=== PATIENT | male | born 1975 | race Caucasian/White ===

== ENCOUNTER → 2017-02-13 | Outpatient (CLI) | payer BC ==
[~2017-02-13] MED LIST: 'PARAFON FORTE500 M1 PO; CYCLOBENZAPRINE10 MG PO; DULOXETINE HCL30 MG PO; HYDROCODONE BIT1 T11 PO; JANUVIA50 MG PO; LOSARTAN POTAS100 M1 PO; Motrin,Rufen800 MG PO; NAPROSYN500 MG PO; OMEPRAZOLE D/R20 MG PO
== END | disposition home or self-care (01) ==
LOC: RAD 15:54
DX: M48.07 Spinal stenosis, lumbosacral region (principal); M43.16 Spondylolisthesis, lumbar region; M40.46 Postural lordosis, lumbar region

== ENCOUNTER → 2017-03-05 | Outpatient (CLI) | payer BC | END | disposition home or self-care (01) | LOC: MRI 08:49 | DX: M51.26 Other intervertebral disc displacement, lumbar region (principal); M54.5 Low back pain ==

== ENCOUNTER 2018-11-20 08:52 | Inpatient (IN) | payer BC ==
[2018-11-20] VITALS (7 sets, daily range): BP systolic 125–162; BP diastolic 76–101
[~2018-11-20] VITALS: Ht 190.5 cm
[2018-11-20 09:21] LABS: BASO # 0.1 10*3/uL (0.0-0.1); BASO % 0.4 % (0.0-1.0); EOS # 0.1 10*3/uL (0.0-0.4); EOS % 0.6 % (1.0-4.0); HEMOGLOBIN 18.3 g/dl (14.0-18.0); LYMPH # 2.3 10*3/uL (1.3-4.4); MEAN CELL VOLUME 86.4 fl (80.0-94.0); MEAN CORPUSCULAR HGB 30.4 pg (27.0-31.0); MEAN CORPUSCULAR HGB CONC 35.2 g/dl (33.0-37.0); MEAN PLATELET VOLUME 10.1 fl (9.6-12.3); MONO # 1.1 10*3/uL (0.1-1.0); MONO % 5.4 % (3.0-9.0); NEUT # 15.8 10*3/uL (2.3-7.9); NEUT % 81.2 % (47.0-73.0); PLATELET COUNT AUTOMATED 261 10*3/uL (130-400); RED BLOOD COUNT 6.02 10*6/uL (4.50-5.90); RED CELL DISTRI WIDTH 12.8 % (0-14.5); WHITE BLOOD COUNT 19.4 10*3/uL (4.8-10.8)
--- NOTE | 2018-11-20 09:30 | NUR ---
PAIN HAS EASED A LITTLE. PLACEFD ON 2L NC FOR POX OF 88% ON ROOM AIR AFTER PAIN MEDS.
[2018-11-20] MEDS ORDERED: HYDROCODONE-AC1 EACH PO (09:32)
[2018-11-20 09:37] LABS: ALBUMIN 3.7 gm/dl (3.1-4.5); ALKALINE PHOSPHATASE 155 U/L (45-117); BUN 12 mg/dl (7-24); CHLORIDE 108 mmol/L (98-107); CREATININE 0.88 mg/dL (0.70-1.30); POTASSIUM 3.7 mmol/L (3.5-5.1); SGOT/AST 199 IU/L (3-35); SGPT/ALT 334 U/L (12-78); SODIUM 138 mmol/L (136-145); TOTAL PROTEIN 7.9 gm/dL (6.4-8.2)
[2018-11-20 10:04] LABS: LIPASE 27560 U/L (73-393)
[2018-11-20 10:24] LABS: BILIRUBIN 1+ (NEGATIVE); BLOOD NEGATIVE (NEGATIVE); CLARITY CLEAR (CLEAR); COLOR YELLOW (YELLOW); GLUCOSE TRACE (NEGATIVE); KETONE NEGATIVE (NEGATIVE); LEUKO ESTERASE NEGATIVE (NEGATIVE); NITRITE NEGATIVE (NEGATIVE); SPECIFIC GRAVITY <= 1.005 (1.005-1.030); UROBILINOGEN 0.2 E.U./dl (0.2-1.0)
--- NOTE | 2018-11-20 10:43 | NUR ---
REMEDICATED WITH DILAUDID FOR RETURN OF PAIN.
--- NOTE | 2018-11-20 11:06 | NUR ---
PAIN IS BETTER AT THIS TIME.
[2018-11-20] MEDS ORDERED: CYMBALTA60 MG PO (12:47)
--- NOTE | 2018-11-20 12:49 | NUR ---
A 43, admitted to 5E, under the services of ZULEYKA Mckeon DO with a diagnosis of PANCREATITIS. Chief complaint is ABDOMINAL PAIN,NAUSEA AND VOMITING. Patient arrived via from ER. Monitor applied. Initial assessment completed. Vital signs taken and recorded. ZULEYKA MCKEON DO notified of admission to the unit. Orders received. See assessment for past medical history, medications and allergies. Patient and/or family oriented to unit. [facility] visitation policy reviewed. Clothing/patient valuable form completed. ADAM BROWN
--- NOTE | 2018-11-20 12:49 | NUR ---
RODGER-RN INFORMED THIS NURSE THAT WAS ALREADY CONSULTED AND TALKED T.
--- NOTE | 2018-11-20 12:53 | NUR ---
MEDS RECONCILED AT BEDSIDE WITH AND PATIENT.
--- NOTE | 2018-11-20 13:23 | NUR ---
YONATAN INFORMED THAT MEDICATIONS ARE VERIFIED AND THAT PATIENT WAS STILL HAVING COMPLAINT OF PAIN. STATED SHE WAS WORKING ON HIS CHART NOW.
--- NOTE | 2018-11-20 14:25 | NUR ---
PATIENT REQUESTED PAIN MEDICATION FOR ABDOMINAL PAIN 07/25. MORPHINE GIVEN, WILL MONITOR.
--- NOTE | 2018-11-20 15:25 | NUR ---
PATIENT STATED THAT PAIN MEDICATION WAS SOMEWHAT EFFECTIVE FOR ABDOMINAL PAIN.
--- NOTE | 2018-11-20 17:59 | NUR ---
INFORMED THAT PATIENT IS HAVING 10/10 PAIN TO ABDOMINAL REGION AND NOT DUE FOR PAIN MEDICATION FOR ANOTHER 1/2 HOUR[address] DT[address] SHE WOULD PL[address] A ONE TIME ORDER.
--- NOTE | 2018-11-20 18:38 | NUR ---
PATIENT RECEIVED ZOFRAN FOR NAUSEA. VOMITING BRIGHT GREEN EMESIS.
--- NOTE | 2018-11-20 20:10 | NUR ---
PT RESTING IN BED. RESP-EASY AND REGULAR. OXYGEN IN USE. IVF INFUSING WITH NO PROBLEM. C/O UPPER ABDOMINAL PAIN ACROSS THE TOP OF ABDOMEN, RATES PAIN 5 ON PAIN SCALE, SEE EMAR. CALL LIGHT IN REACH.
--- NOTE | 2018-11-20 22:15 | NUR ---
PT RESTING IN BED C/O HEADACHE, RATES PAIN 8 ON PAIN SCALE 0-10. MEDICATED WITH TORADOL IV PER PRN ORDER, SEE EMAR. PT STATES ABDOMINAL PAIN IS BETTER RATES APIN 4 ON PAIN 0-10. CALL LIGHT IN REACH.
--- NOTE | 2018-11-20 23:10 | NUR ---
RESTING IN BED WITH EYES CLOSED. RESP-EASY AND REGULAR. OXYGEN IN USE. IVF INFUSING WITH NO PROBLEM. MEDICATION SEEMS TO BE WORKING. CALL LIGHT IN REACH.
[2018-11-21] VITALS: BP 161/99
--- NOTE | 2018-11-21 00:27 | NUR ---
RESTING IN BED. MEDICATED WITH MORPHINE IV PER PRN ORDER, SEE EMAR. FOR C/O ABDOMINAL PAIN, RATES PAIN 8 ON PAIN SCALE 0-10. CALL LIGHT IN REACH. SEE SHIFT ASSESSMENT.
--- NOTE | 2018-11-21 04:00 | NUR ---
SLEEPING IN BED. RESP-EASY AND REGUALR. CALL LIGHT IN REACH.
--- NOTE | 2018-11-21 05:40 | NUR ---
PT C/O ABDOMINAL PAIN, RATES PAIN 7 ON PAIN SCALE 0-10. MEDICATED WITH MORPHINE IV PER PRN ORDER, SEE EMAR. BSG-118, SEE EMAR. CALL LIGHT IN REACH.
[2018-11-21 06:52] LABS: BASO % 0.3 % (0.0-1.0); EOS # 0.2 10*3/uL (0.0-0.4); EOS % 1.3 % (1.0-4.0); HEMATOCRIT 49.8 % (42.0-52.0); LYMPH # 2.2 10*3/uL (1.3-4.4); LYMPH % 18.4 % (27.0-41.0); MEAN CORPUSCULAR HGB 30.5 pg (27.0-31.0); MEAN CORPUSCULAR HGB CONC 34.1 g/dl (33.0-37.0); MEAN PLATELET VOLUME 10.4 fl (9.6-12.3); MONO # 0.6 10*3/uL (0.1-1.0); MONO % 5.3 % (3.0-9.0); NEUT # 8.9 10*3/uL (2.3-7.9); NEUT % 74.4 % (47.0-73.0); PLATELET COUNT AUTOMATED 210 10*3/uL (130-400); RED BLOOD COUNT 5.57 10*6/uL (4.50-5.90); RED CELL DISTRI WIDTH 13.2 % (0-14.5)
[2018-11-21 06:53] LABS: MEAN CELL VOLUME 89.4 fl (80.0-94.0)
[2018-11-21 07:00] LABS: ALBUMIN 3.1 gm/dl (3.1-4.5); ALKALINE PHOSPHATASE 123 U/L (45-117); BILIRUBIN, DIRECT 0.9 mg/dL (0.0-0.2); BUN 15 mg/dl (7-24); CHLORIDE 107 mmol/L (98-107); CHOLESTEROL 174 mg/dL (<200); CREATININE 0.71 mg/dL (0.70-1.30); HDL CHOLESTEROL 30 mg/dl (40-60); LDL CHOLESTEROL 115 mg/dL (9-159); PHOSPHOROUS 2.7 mg/dL (2.5-4.9); POTASSIUM 3.8 mmol/L (3.5-5.1); SGOT/AST 79 IU/L (3-35); SGPT/ALT 214 U/L (12-78); SODIUM 143 mmol/L (136-145); TOTAL PROTEIN 7.2 gm/dL (6.4-8.2); TRIGLYCERIDES 144 mg/dl (<150); VLDL CHOLESTEROL 29 mg/dL (6-40)
[2018-11-21 07:07] LABS: FREE T4 1.98 ng/dl (0.76-1.46); THYROID STIM HORMONE (HS) 0.246 uIU/ml (0.358-4.75)
--- NOTE | 2018-11-21 07:10 | NUR ---
BEDSIDE REPORT OBTAINED FROM LAURO. PATIENT APPEARS TO BE ASLEEP, EYES CLOSED. RESTING COMFORTABLY. NO S&S OF DISTRESS NOTED, RESP ARE ERND ON O2 2LPM NC INPLACE. BED IS LOCKED IN LOWEST POSITION CALL LIGHT LEFT WITHIN REACH.
[2018-11-21 07:12] LABS: LIPASE 1633 U/L (73-393)
[2018-11-21 08:00] VITALS: BP 118/72; BP 158/95
--- NOTE | 2018-11-21 09:10 | NUR ---
CALLED AND RECONFIRMED THAT HE IS AWARE OF CONSULT. STATED HE HAD INFORMED ER STAFF THAT PATIENT WAS NOT A SURGICAL CANNIDATE, SIAD HE WOULD BE INTODAY AND DISCUSS WITH GIO POWERS INFORMED.
--- NOTE | 2018-11-21 09:12 | NUR ---
YONATAN STATED IF MORPHINE PRN WAS NOT AVAILABLE ATT HIS TIME TO PLACE A ONE TIME ORDER ASHANTI AND SHE WOULD ADJUST MORPHINE IV TO Q2HR PRN INSTEAD OF Q4HR PRN.
--- NOTE | 2018-11-21 09:19 | NUR ---
PATIENT MEDICATED WITH ONE TIME DOSE OF IV MORPHINE FOR 9/10 ABDOMINAL PAIN. WILL MONITOR.
--- NOTE | 2018-11-21 10:19 | NUR ---
PATIENT STATED THAT MORPHINE WAS SOMEWHAT EFFECTIVE, STATED PAIN IS MORE OF AN ACHE.
[2018-11-21 12:00] VITALS: BP 143/79
--- NOTE | 2018-11-21 12:48 | NUR ---
Music Education Adjunct Professor in to talk to patient. Patient states lives at HOME with AND KIDS. There are SOME steps in the home. Physician: NONE AT THIS TIME, GOES TO PAIN CLINIC Pharmacy: [facility] services: NONE Patient's level of ADLs: INDEPENDENT Patient has working utilities: YES DME: NONE Follow-up physician's appointment after d/c: WILL FIND ONE AFTER DISCHARGE PER PT Does patient want to access PORTAL?: NO Discharge plan PT STATES HE LIVES AT HOME WITH HIS FAMILY AND IS INDEPENDENT IN CARE. CAN BE DISCHARGED TO HOME WHEN MEDICALLY STABLE. WILL CONTINUE TO FOLLOW.. ЕЛЕНА FENTON
--- NOTE | 2018-11-21 14:00 | NUR ---
PATIENT STATED THAT HE TOLERATED CLEAR LIQUID DIET FINE. DIET WILL BE ADVANCED.
--- NOTE | 2018-11-21 15:00 | NUR ---
NONAOMED EDWIN THAT PATIENT HAD TOLERATED CLEAR LIQUID DIET. STATING TO ADVANCE HIM TO FULL LIQUID DIET, THEN SOFT, THEN REGULAR.
--- NOTE | 2018-11-21 15:11 | NUR ---
PATIENT MEDICATED WITH MORPHINE FOR C/O 8/10 ABDOMINAL PAIN. WILL MONITOR.
[2018-11-21 16:00] VITALS: BP 151/94
--- NOTE | 2018-11-21 16:26 | NUR ---
YONATAN NINFROMED THAT 1311 MORPHINE DOSE WAS INEEFECTIVE. PATIENT WAS 05/24 AND IN NOW 07/25. INFORMED THAT PATIENT HAS NOT ATE ANYTHING SINCE LAST CLEAR LIQUID MEAL AROUND 1200. GIO STATES TO ORDER MORPHINE IV 2MG NOW.
--- NOTE | 2018-11-21 16:35 | NUR ---
PATIENT MEDICATED FOR 9/10 PAIN TO ABDOMINAL REGION. WILL MONITOR.
--- NOTE | 2018-11-21 17:35 | NUR ---
ONE TIME MORPHINE SOMEWHAT EFFECTIVE FOR ABDOMINAL REGION PAIN, PAIN LEVEL DECREASED TO 5/10 AND PATIENT STATES ITS MORE OF A DULL ACHE NOW.
[2018-11-21 20:00] VITALS: BP 166/95
--- NOTE | 2018-11-21 20:00 | NUR ---
GOT A SHOWER; LINENS CHANGED.
--- NOTE | 2018-11-21 20:15 | NUR ---
BACK TO BED. LEADS/MONITOR PLACED BACK ON PATIENT. IV FLUIDS RESTARTED. PT. VOICES NO C/O AT THIS TIME. FAMILY VISITING. CALL LIGHT WITHIN REACH.
[2018-11-22] VITALS: BP 150/87
--- NOTE | 2018-11-22 02:00 | NUR ---
IV started left antecubital with #22 protective cath after 2 attempts. Site prepped with Chloroprep. Sterile dressing applied. Patient tolerated procedure well. IV infusing at cc/hr. DWIGHT MC
--- NOTE | 2018-11-22 02:05 | NUR ---
MEDICATED WITH MS 2 MG SLOW IV PUSH FOR C/O ABDOMINAL DISCOMFORT RATED A 7/10.
--- NOTE | 2018-11-22 04:00 | NUR ---
RESTING IN BED WITH EYES CLOSED. MS GIVEN EARLIER APPARENTLY EFFECTIVE.
--- NOTE | 2018-11-22 06:00 | NUR ---
BLOOD SUGAR 103. PT. STATES THAT HE HOPES TO BE DISCHARGED TODAY. IV FLUIDS CONTINUE TO INFUSE WITHOUT DIFFICULTY; SITE ASYMPTOMATIC. CALL LIGHT WITHIN REACH.
--- NOTE | 2018-11-22 07:00 | NUR ---
BEDSIDE REPORT OBTAINED FROM PAT-RN. PATIENT IS ASLEEP, EYES CLOSED. NO S& SYMPTOMS OF DISTRESS NOTED, RESP ARE ERND ON ROOM AIR. BED [id number] IN LOWEST POSITION, CALL LIGTH LEFT WITHI REACH.
[2018-11-22 08:00] VITALS: BP 148/88
[2018-11-22 08:12] LABS: HEPATITIS B SURFACE AG Negative (Negative); HEPATITIS C VIRUS ANTIBODY 0.2 s/co (0.0-0.9)
--- NOTE | 2018-11-22 09:00 | NUR ---
case management visits with patient, patient denies any home needs
[2018-11-22 12:00] VITALS: BP 159/92
--- NOTE | 2018-11-22 13:12 | NUR ---
YONATAN INFORMED THAT PATIENT TOLERTED HIS DIET WELL, HAS NO INCREASED PAIN AND STATES HE IS READY TO GO HOME. GIO STATED SHE WILL GET HIS DISCHARGE ORDERS IN PLACE.
[2018-11-22] MEDS ORDERED: Vitamin D PO (13:18)
--- NOTE | 2018-11-22 13:50 | NUR ---
Discharge instructions reviewed with patient/family. Patient receptive and verbalizes understanding. Follow-up care arranged. Written instructions given to patient/family. Patient received written script, low fat diet instructions, and discharge instructs per nurse. Patient verbalized understanding. Patient's IV removed and patient ambulated from floor. No s/s of distress. JORGE VALADEZ
[2018-12-20] MEDS ORDERED: IBU800 M1 PO (10:20)
[2018-12-22] MEDS ORDERED: NORCO 10-325 T1 EACH PO (08:45)
== END 2018-11-22 13:50 | disposition home or self-care (01) | DRG 871 ==
LOC: ED 08:52 → EDHOLD 12:21 → 5E 12:21 → EDHOLD 12:22 → 5E 12:38
PROVIDERS: Emergency Medicine; Registered Nurse; ADMIT Internal Medicine
DX: A41.9 Sepsis, unspecified organism (principal); K85.90 Acute pancreatitis without necrosis or infection, unspecified; I10 Essential (primary) hypertension; K21.9 Gastro-esophageal reflux disease without esophagitis; D58.2 Other hemoglobinopathies; E87.8 Other disorders of electrolyte and fluid balance, not elsewhere classified; E11.65 Type 2 diabetes mellitus with hyperglycemia; E80.6 Other disorders of bilirubin metabolism; M54.9 Dorsalgia, unspecified; Z80.0 Family history of malignant neoplasm of digestive organs; Z79.1 Long term (current) use of non-steroidal anti-inflammatories (NSAID); Z79.899 Other long term (current) drug therapy

== ENCOUNTER → 2018-11-29 | Outpatient (CLI) | payer BC ==
[~2018-11-29] MED LIST changes: +CYMBALTA60 MG PO; +HYDROCODONE-AC1 EACH PO; +IBU800 M1 PO; +NORCO 10-325 T1 EACH PO; +Vitamin D PO
== END | disposition home or self-care (01) ==
LOC: RESCLI 02:16
DX: K21.9 Gastro-esophageal reflux disease without esophagitis (principal); M54.5 Low back pain; G89.29 Other chronic pain; I10 Essential (primary) hypertension; E55.9 Vitamin D deficiency, unspecified; E66.01 Morbid (severe) obesity due to excess calories; F17.210 Nicotine dependence, cigarettes, uncomplicated; E11.9 Type 2 diabetes mellitus without complications; K85.10 Biliary acute pancreatitis without necrosis or infection; Z76.89 Persons encountering health services in other specified circumstances; Z71.6 Tobacco abuse counseling; Z79.899 Other long term (current) drug therapy

== ENCOUNTER → 2018-12-22 | Day surgery (SDC) | payer BC ==
[2018-12-20 11:10] LABS: BILIRUBIN 1+ (NEGATIVE); BLOOD NEGATIVE (NEGATIVE); CLARITY CLEAR (CLEAR); COLOR YELLOW (YELLOW); GLUCOSE NEGATIVE (NEGATIVE); KETONE TRACE (NEGATIVE); LEUKO ESTERASE NEGATIVE (NEGATIVE); NITRITE NEGATIVE (NEGATIVE); SPECIFIC GRAVITY >= 1.030 (1.005-1.030)
[2018-12-20 11:13] LABS: BASO # 0.1 10*3/uL (0.0-0.1); BASO % 0.9 % (0.0-1.0); EOS # 0.3 10*3/uL (0.0-0.4); EOS % 3.2 % (1.0-4.0); HEMATOCRIT 47.2 % (42.0-52.0); HEMOGLOBIN 16.8 g/dl (14.0-18.0); LYMPH # 3.5 10*3/uL (1.3-4.4); LYMPH % 34.8 % (27.0-41.0); MEAN CORPUSCULAR HGB 30.6 pg (27.0-31.0); MEAN CORPUSCULAR HGB CONC 35.6 g/dl (33.0-37.0); MEAN PLATELET VOLUME 10.4 fl (9.6-12.3); MONO # 0.5 10*3/uL (0.1-1.0); MONO % 5.2 % (3.0-9.0); NEUT # 5.5 10*3/uL (2.3-7.9); NEUT % 55.7 % (47.0-73.0); PLATELET COUNT AUTOMATED 220 10*3/uL (130-400); RED BLOOD COUNT 5.49 10*6/uL (4.50-5.90); RED CELL DISTRI WIDTH 12.5 % (0-14.5); WHITE BLOOD COUNT 9.9 10*3/uL (4.8-10.8)
[2018-12-20 11:25] LABS: BACTERIA 2+; EPITHELIAL CELLS 0-2; MUCOUS 3+
[2018-12-20 11:26] LABS: FINE GRANULAR CAST 0-2; HYALINE CAST 0-2
[2018-12-20 11:44] LABS: CHLORIDE 105 mmol/L (98-107); POTASSIUM 4.1 mmol/L (3.5-5.1); SODIUM 139 mmol/L (136-145)
[2018-12-20 11:46] LABS: ACT PARTIAL THROMBO TIME 24.9 SECONDS (20.8-31.5)
[2018-12-20 11:59] LABS: BUN 10 mg/dl (7-24); CREATININE 0.83 mg/dL (0.70-1.30)
[~2018-12-22] VITALS: Ht 190.5 cm; Wt 122.5 kg
[2018-12-22] VITALS (9 sets, daily range): BP systolic 126–136; BP diastolic 65–81
--- NOTE | ~2018-12-22 | O ---
[place], [place] OPERATIVE NOTE NAME: RUFINO AGRAWAL [facility] #: [id number] UNIT #: [id number] ROOM: DOCTOR: TYSON DREW MD BIRTHDATE: [birth year] DOS: 12/22/2018 PREOPERATIVE DIAGNOSIS: Gallstones, history of gallstone-associated pancreatitis. POSTOPERATIVE DIAGNOSIS: Gallstones, history of gallstone-associated pancreatitis. PROCEDURE: Laparoscopic cholecystectomy. SURGEON: Tyson Drew MD CLINICAL INTERVIEWER: CORRINA. ANESTHESIA: General with endotracheal intubation. INDICATIONS: This is a 43-year-old gentleman who presents today for the above-mentioned procedure. He has a history of gallstone-associated pancreatitis. The procedure and its complications were explained to the patient in detail preoperatively. Complications that were discussed included, but were not limited to bleeding, infection, hematoma/seroma/abscess formation, biloma formation, inadvertent injury to common bile duct, incisional hernia formation and prolonged postoperative pain. He agreed to proceed. DESCRIPTION OF PROCEDURE: After identifying the patient, the patient was brought to the operating suite and laid in the supine position. After induction of general anesthesia, timeout procedure was called and the parts were then painted and draped in the usual sterile fashion. An incision was made below the umbilicus in a transverse fashion. The skin and the subcutaneous tissue were incised and the fascia was incised vertically. Two stay sutures with 0 Vicryl were taken on either side and the peritoneum was opened. A 12 mm Magdalena port was introduced into the peritoneal cavity and a pneumoperitoneum was created. Under direct vision, an epigastric incision of 10 mm and two 5 mm incisions were made in the right upper quadrant and appropriate size ports were introduced. The gallbladder was then retracted superiorly and laterally. The cystic duct and the cystic artery were meticulously dissected until the critical view of safety was obtained and the triangle of Calot was clearly identified. Thereafter, each of these structures were clipped 3 times and cut between the first and the second clip. The gallbladder was then removed from the bed of the gallbladder with the help of electrocautery. It was placed in an EndoCatch bag and removed from the peritoneal cavity and sent for histopathological diagnosis. Hemostasis was achieved in the liver bed and additional hemostasis was achieved by placing Surgicel strip in the liver bed. At this point, after hemostasis was confirmed, the right upper quadrant and epigastric ports were removed and there was no bleeding seen. The umbilical port was also removed and the pneumoperitoneum was decompressed. Local anesthesia (1% plain lidocaine) was injected in all the 4 incisions and thereafter, the fascial defect in the umbilicus was approximated with the help of 0 Vicryl in a single stitch and the 2 stay sutures were tied together as well. The skin incisions were then approximated with the help of 4-0 Vicryl in a subcuticular running fashion. [place], [place] OPERATIVE NOTE NAME: RUFINO AGRAWAL UNIT #: [id number] ROOM: DOCTOR: TYSON DREW MD BIRTHDATE: [birth year] There were no complications. Dr. Tyson Drew, the attending surgeon, was present throughout the operating case. The patient was extubated uneventfully and brought back to the recovery room in a stable fashion. Tyson Drew MD CM:OPRECORD:OPERATIVE NOTE [id number] TYSON DREW MD 12/22/18 0859 interface
--- NOTE | ~2018-12-22 | EKG ---
[place], [place] ELECTROCARDIOGRAM REPORT NAME: RUFINO AGRAWAL UNIT #: [id number] ROOM: DOCTOR: EPIPHANY DRAFT REPORT BIRTHDATE: [birth year] [facility] Test Date: 2018-12-20 Test Time: 11:09:05 Pat Name: RUFINO AGRAWAL Department: Room: Gender: Freight Checker: Sarai Berrios : 1975 Requested By: BEBA DAY Order Number: [id number] Reading MD: Jose Alberto Schmitt MD Measurements Intervals [place] Rate: 80 P: 44 OK: 177 QRS: 69 QRSD: 95 T: 55 QT: 372 QTc: 430 Interpretive Statements Sinus rhythm Electronically Signed On 12-20-2018 19:31:38 PST by Jose Alberto Schmitt MD CM:EKGRPT:ELECTROCARDIOGRAM REPORT [id number] 30 BEBA DAY MD EPIPHANY DRAFT REPORT BEBA DAY MD
== END | disposition home or self-care (01) ==
LOC: SDC 12-19 10:15
PROVIDERS: Surgery
DX: K80.10 Calculus of gallbladder with chronic cholecystitis without obstruction (principal); E11.9 Type 2 diabetes mellitus without complications; K21.9 Gastro-esophageal reflux disease without esophagitis; I10 Essential (primary) hypertension; F17.210 Nicotine dependence, cigarettes, uncomplicated; Z79.84 Long term (current) use of oral hypoglycemic drugs; Z79.899 Other long term (current) drug therapy; Z72.89 Other problems related to lifestyle; Z98.890 Other specified postprocedural states; Z83.3 Family history of diabetes mellitus; Z80.0 Family history of malignant neoplasm of digestive organs; Z82.49 Family history of ischemic heart disease and other diseases of the circulatory system

== ENCOUNTER → 2022-08-17 | Outpatient (CLI) | payer BC ==
[2022-08-17 10:23] LABS: BILIRUBIN Negative (Negative); BLOOD Negative (Negative); CLARITY Clear (Clear); COLOR Yellow (Yellow); GLUCOSE 3+ (Negative); KETONE Negative (Negative); LEUKO ESTERASE Negative (Negative); NITRITE Negative (Negative); PH 5.5 (4.5-8.0); SPECIFIC GRAVITY >= 1.030 (1.001-1.030)
[2022-08-17 10:45] LABS: RBC 0-2 rbc/hpf (0-2)
== END | disposition home or self-care (01) ==
LOC: LAB 09:57
PROVIDERS: Nurse Practitioner Family; ATTEND Internal Medicine Endocrinology, Diabetes & Metabolism
DX: R30.0 Dysuria (principal)

== ENCOUNTER → 2022-10-15 | Outpatient (CLI) | payer BC ==
[2022-10-15 10:02] LABS: TOTAL PROTEIN 7.5 gm/dL (6.0-8.0)
[2022-10-15 10:04] LABS: THYROID STIM HORMONE (HS) 0.734 uIU/ml (0.550-4.780)
== END | disposition home or self-care (01) ==
LOC: LAB 08:53
PROVIDERS: ATTEND Nurse Practitioner Family
DX: E29.1 Testicular hypofunction (principal); N42.9 Disorder of prostate, unspecified